=== PATIENT | male | born 1970 | race Caucasian/White ===

== ENCOUNTER 2021-02-02 03:00 | Inpatient (IN) | payer MEDICAID ==
[~2021-02-02] VITALS: Ht 180.3 cm; Wt 84.4 kg
[2021-02-02 03:48] LABS: CHLORIDE 100 mEq/L (98-107)
[2021-02-02 03:51] LABS: BASOPHILS % 0.8 % (0.0-2.0); EOSINOPHILS % 1.5 % (0.0-5.0); HEMATOCRIT. 44.2 % (42.0-52.0); HEMOGLOBIN. 14.9 g/dL (14.0-18.0); MEAN CORPUSCULAR HEMOGLOBIN 31.7 pg (28.0-32.0); MEAN PLATELET VOLUME 10.2 fl (7.4-10.4); MONOCYTES % 7.4 % (2.0-8.0); NEUTROPHILS % 76.3 % (40.0-76.0); PLATELET 186 x1000/uL (130-400); RED CELL DISTRIBUTION WIDTH 13.1 % (11.6-14.6)
[2021-02-02] MEDS ORDERED: ONDANSETRON HCL 4MG/2ML INJ IV STA (04:07)
[2021-02-02] MEDS ORDERED: MORPHINE SULFATE 4 MG/ML CPJ (NOT FOR IM USE) IV STA (04:07)
[2021-02-02] MEDS ORDERED: NITROGLYCERIN OINT 1GM/INCH UDPKT TD ONE (04:15)
[2021-02-02] MEDS ORDERED: FUROSEMIDE 40MG/4ML VIAL IV ONE (04:15)
[2021-02-02 04:48] LABS: *AMPHETAMINES SCREEN URINE PRESUMTIVE POSITIVE (NEGATIVE); *BARBITURATES SCREEN URINE NEGATIVE (NEGATIVE); *BENZODIAZEPINES SCREEN URINE PRESUMTIVE POSITIVE (NEGATIVE)
[2021-02-02 04:49] LABS: *COCAINE SCREEN URINE NEGATIVE (NEGATIVE); CANNABINOID URINE SCREEN NEGATIVE (NEGATIVE); METHADONE URINE SCREEN NEGATIVE (NEGATIVE); OPIATES URINE SCREEN NEGATIVE (NEGATIVE); PHENCYCLIDINE URINE SCREEN NEGATIVE (NEGATIVE)
[2021-02-02] MEDS ORDERED: ENOXAPARIN 80MG/0.8ML SYR SUBCUT ONE (05:00)
[2021-02-02] MEDS ORDERED: MORPHINE SULFATE 2 MG/ML CPJ (NOT FOR IM USE) IV SCH (05:00)
[2021-02-02] MEDS ORDERED: MAGNESIUM/ALUMINUM HYDROXIDE/SIMETHICONE 30ML UDC PO PRN (06:45)
[2021-02-02] MEDS ORDERED: DOCUSATE SODIUM 100MG CAPSULE PO PRN (06:45)
[2021-02-02] MEDS ORDERED: ONDANSETRON HCL 4MG/2ML INJ IV PRN (06:45)
[2021-02-02] MEDS ORDERED: CLONIDINE 0.1MG TABLET PO PRN (06:45)
[2021-02-02] MEDS: ENOXAPARIN 40MG/0.4ML SYR SUBCUT SCH (07:00)
[2021-02-02] MEDS ORDERED: NALOXONE HCL 0.4MG/ML VIAL IV PRN (07:00)
[2021-02-02] MEDS: NITROGLYCERIN 0.2MG/HR PATCH TOP SCH (07:00)
[2021-02-02] MEDS: AMLODIPINE 10MG TABLET PO SCH (07:53)
[2021-02-02] MEDS: ASPIRIN 81MG EC TABLET PO SCH (07:53)
[2021-02-02] MEDS: HYDROCODONE/ACETAMINOPHEN 5/325MG TABLET PO PRN (11:44)
[2021-02-02] MEDS ORDERED: DEXTROSE 50% WATER 50ML SYRINGE IV PRN (13:15)
[2021-02-02] MEDS ORDERED: INSULIN LISPRO 100 UNITS/ML SUBCUT SCH (13:20)
[2021-02-02 15:00] VITALS: BP 98/65
[2021-02-02 19:09] VITALS: BP 98/65
[2021-02-02] MEDS ORDERED: GLIP5TAB12 MT (19:34)
[2021-02-02] MEDS ORDERED: GABA-290 MT (19:34)
[2021-02-02] MEDS ORDERED: GABA-290 PO (19:34)
[2021-02-02] MEDS ORDERED: FURO-151 PO (19:34)
[2021-02-02 20:00] VITALS: BP 102/73
[2021-02-02] MEDS: FUROSEMIDE 40MG/4ML VIAL IVP SCH (20:24)
[2021-02-02] MEDS ORDERED: *PATIENT'S OWN MEDICATION STORAGE XX SCH (20:30)
[2021-02-02] MEDS: ACETAMINOPHEN 325MG TABLET PO PRN (23:09)
[2021-02-02] MEDS: ATORVASTATIN CALCIUM 20MG TABLET PO SCH (23:10)
[2021-02-03] VITALS (7 sets, daily range): BP systolic 98–148; BP diastolic 61–73
[2021-02-03] MEDS ORDERED: DEXTROSE 50% WATER 50ML SYRINGE IV PRN ×2 (02:00)
[2021-02-03] MEDS: ACETAMINOPHEN 325MG TABLET PO PRN (04:54)
[2021-02-03] MEDS: FUROSEMIDE 40MG/4ML VIAL IVP SCH ×2 (06:54→17:59)
[2021-02-03] MEDS: BLOOD SUGAR DIAGNOSTIC STRIP TEST SCH ×4 (06:54→20:19)
[2021-02-03] MEDS: INSULIN LISPRO 100 UNITS/ML SUBCUT SCH ×4 (06:56→20:44)
[2021-02-03 07:32] LABS: BASOPHILS % 0.8 % (0.0-2.0); EOSINOPHILS % 2.6 % (0.0-5.0); HEMATOCRIT. 44.5 % (42.0-52.0); HEMOGLOBIN. 15.2 g/dL (14.0-18.0); LYMPHOCYTES % 25.3 % (20.0-50.0); MEAN CORPUSCULAR HEMOGLOBIN 31.7 pg (28.0-32.0); MEAN CORPUSCULAR VOLUME 92.8 fL (80.0-94.0); MEAN PLATELET VOLUME 10.2 fl (7.4-10.4); MONOCYTES % 12.8 % (2.0-8.0); NEUTROPHILS % 58.5 % (40.0-76.0); PLATELET 161 x1000/uL (130-400); RED CELL DISTRIBUTION WIDTH 12.9 % (11.6-14.6)
[2021-02-03] MEDS: ASPIRIN 81MG EC TABLET PO SCH (08:57)
[2021-02-03] MEDS: AMLODIPINE 10MG TABLET PO SCH (08:57)
[2021-02-03] MEDS: HYDROCODONE/ACETAMINOPHEN 5/325MG TABLET PO PRN ×3 (08:58→20:19)
[2021-02-03] MEDS: ENOXAPARIN 40MG/0.4ML SYR SUBCUT SCH (08:58)
[2021-02-03] MEDS: SPIRONOLACTONE 25MG TABLET PO SCH (09:02)
[2021-02-03] MEDS: NITROGLYCERIN 0.2MG/HR PATCH TOP SCH (09:59)
[2021-02-03] MEDS: ATORVASTATIN CALCIUM 20MG TABLET PO SCH (20:19)
[2021-02-04] MEDS: HYDROCODONE/ACETAMINOPHEN 5/325MG TABLET PO PRN ×3 (00:06→10:21)
[2021-02-04 04:00] VITALS: BP 114/76
[2021-02-04] MEDS: BLOOD SUGAR DIAGNOSTIC STRIP TEST SCH ×2 (05:57→11:57)
[2021-02-04] MEDS: FUROSEMIDE 40MG/4ML VIAL IVP SCH (06:04)
[2021-02-04] MEDS: INSULIN LISPRO 100 UNITS/ML SUBCUT SCH ×2 (06:05→12:10)
[2021-02-04 08:00] VITALS: BP 118/76
[2021-02-04] MEDS: ENOXAPARIN 40MG/0.4ML SYR SUBCUT SCH ×2 (09:00→10:22)
[2021-02-04] MEDS: SPIRONOLACTONE 25MG TABLET PO SCH (10:17)
[2021-02-04] MEDS: ASPIRIN 81MG EC TABLET PO SCH (10:21)
[2021-02-04] MEDS: AMLODIPINE 10MG TABLET PO SCH (10:21)
[2021-02-04 11:42] VITALS: BP 118/76
[2021-02-04] MEDS: NITROGLYCERIN 0.2MG/HR PATCH TOP SCH (11:57)
[2021-02-04 12:00] VITALS: BP 121/71
[2021-02-04 16:00] VITALS: BP 119/75
== END 2021-02-04 17:53 | disposition home or self-care (01) | DRG 812 ==
LOC: ER 03:00 → 8WST 04:39 → ENRESERV 11:40
PROVIDERS: ADMIT Hospitalist; ATTEND Hospitalist
DX: T43.621A Poisoning by amphetamines, accidental (unintentional), initial encounter (principal); R65.11 Systemic inflammatory response syndrome (SIRS) of non-infectious origin with acute organ dysfunction; I21.4 Non-ST elevation (NSTEMI) myocardial infarction; E44.0 Moderate protein-calorie malnutrition; I50.23 Acute on chronic systolic (congestive) heart failure; I11.0 Hypertensive heart disease with heart failure; E11.65 Type 2 diabetes mellitus with hyperglycemia; F15.10 Other stimulant abuse, uncomplicated; R09.89 Other specified symptoms and signs involving the circulatory and respiratory systems; I25.2 Old myocardial infarction; Z82.49 Family history of ischemic heart disease and other diseases of the circulatory system; Z91.14 Patient's other noncompliance with medication regimen; Z95.0 Presence of cardiac pacemaker; Y92.89 Other specified places as the place of occurrence of the external cause; Z68.25 Body mass index [BMI] 25.0-25.9, adult
CPT/HCPCS: 36415; 71045; 80053; 80061; 80305; 82962; 83036; 83880; 84484; 85025; 93306; 93970; 99291; J1650; J1815; J1940; J2270; J2405